=== PATIENT | male | born 1995 | race Two or more races ===

== ENCOUNTER 2021-02-11 14:11 | Emergency (ER) | payer MEDICAID ==
[~2021-02-11] VITALS: Ht 175.3 cm; Wt 61.2 kg
[2021-02-11] MEDS ORDERED: LIDOCAINE HCL/PF 1% 30 ML SDV ONE (15:11)
--- NOTE | 2021-02-11 15:29 | NUR ---
dressing applied to the left hand, S/P wound suture by Dr. Sewell
--- NOTE | 2021-02-11 15:30 | NUR ---
Patient discharged to home in stable condition. Written and verbal after care instructions given. Patient verbalizes understanding of instruction.
[2021-02-11 15:31] VITALS: BP 102/62
== END 2021-02-11 15:32 | disposition home or self-care (01) ==
LOC: ER 14:11
DX: S61.412A Laceration without foreign body of left hand, initial encounter (principal); W26.8XXA Contact with other sharp object(s), not elsewhere classified, initial encounter; Y93.89 Activity, other specified; Y92.89 Other specified places as the place of occurrence of the external cause; Y99.8 Other external cause status
CPT/HCPCS: 12001; 99282; A6403; J3490